=== PATIENT | male | born 1965 ===

== ENCOUNTER 2017-03-14 09:32 | Emergency (ER) | payer MEDICAID, OTHER ==
[2017-03-14 09:39] VITALS: O2SAT 100
--- NOTE | 2017-03-14 10:33 | C.PDOC ---
History Of Present Illness 51 Y/O MALE PRESENTS TO ED WITH C/O BLOOD IN SPERM AFTER HAVING SEX. PT STATES HAVING UNPROTECTED SEX WITH HIS , NOTICED BLOOD IN SPERM. OTHERWISE, ASYMPTOMATIC. DENIES PAIN. PATIENT DENIES ANY SIGNIFICANT PAST MEDICAL HISTORY, INCLUDING HYPERTENSION. NOTES HE TAKES NO REGULAR MEDICATIONS. DENIES PAIN, DYSURIA, ABDOMINAL PAIN, OR OTHER ASSOCIATED SX. EXAM ON ARRIVAL, PT FOUND TO BE HYPERTENSIVE, 229/115 REM NEG Time Seen by Provider: 03/14/17 09:55 Chief Complaint (Nursing): Male Genitourinary History Per: Patient History/Exam Limitations: no limitations Onset/Duration Of Symptoms: Days Current Symptoms Are (Timing): Still Present Pain Scale Rating Of: 0 Associated Symptoms: denies: Fever, Chills, Urinary Symptoms Recent travel outside of the [place]: No Past Medical History Reviewed: Historical Data, Nursing Documentation, Vital Signs Vital Signs: Last Vital Signs Temp 97.8 F 03/14/17 11:05 Pulse 73 03/14/17 12:37 Resp 16 03/14/17 12:37 BP 174/106 H 03/14/17 12:37 Pulse Ox 100 03/14/17 12:20 - Medical History PMH: No Chronic Diseases Family History: States: Unknown Family Hx - Social History Hx Alcohol Use: Yes Hx Substance Use: No - Immunization History Hx Tetanus Toxoid Vaccination: No Hx Influenza Vaccination: No Hx Pneumococcal Vaccination: No Review Of Systems Except As Marked, All Systems Reviewed And Found Negative. Constitutional: Negative for: Fever, Chills Cardiovascular: Negative for: Chest Pain Respiratory: Negative for: Cough, Shortness of Breath Genitourinary: Positive for: Other (HEMATOSPERMIA). Negative for: Dysuria, Hematuria, Scrotal Pain, Rash, Penile Pain Skin: Negative for: Rash Physical Exam - Physical Exam Appears: Non-toxic, No Acute Distress Skin: Normal Color, Warm, Dry Head: Atraumatic, Normacephalic Oral Mucosa: Moist Chest: Symmetrical Cardiovascular: Rhythm Regular Respiratory: Normal Breath Sounds, No Rales, No Rhonchi, No Wheezing Gastrointestinal/Abdominal: No Soft, No Tenderness, No Guarding, No Rebound Back: Normal Inspection Extremity: Normal ROM, Capillary Refill (< 2 SEC.) Neurological/Psych: Oriented x3, Normal Speech, Normal Cognition ED Course And Treatment O2 Sat by Pulse Oximetry: 100 (RA) Pulse Ox Interpretation: Normal Progress - Re-Evaluation Re-evaluation Note: 03/14/17 12:19 EXAM UNCHANGED. PERSISTENT HYPERTENSION, RE-EVALUATE AFTER CLONIDINE Disposition Counseled Patient/Family Regarding: Studies Performed, Diagnosis, Need For Followup, Rx Given - Disposition Referrals: [facility] [Outside] [facility] [Outside] Disposition: HOME/ ROUTINE Disposition Time: 12:45 Condition: IMPROVED Additional Instructions: Hematospermia is the presence of blood in the semen. The semen is composed of secretions from the testes, epididymis, urethral glands, prostate gland, and seminal vesicles. The clear secretions from the urethral glands account for a tiny amount of the semen, the milky white prostate gland secretions account for a small amount of the semen, and the viscous secretions from the seminal vesicles account for the majority of the semen. Hematospermia is not uncommonly encountered in men and usually results from prostate or seminal vesicle inflammation. It is almost always benign and selflimited, resolving in several weeks. IT IS RARELY INDICATIVE OF ANY SERIOUS UNDERLYING DISORDER, FRIGHTENING IT IS TO SEE THE PRESENCE OF BLOOD IN THE EJACULATE! In a very small minority of individuals, hematospermia may become recurrent or chronic, causing great concern and anxiety. Hematospermia may cause blood in the initial, middle, or terminal portion of the ejaculate. Typically, blood arising from the prostate occurs in the initial portion, whereas blood arising from the seminal vesicles occurs later. The color of the semen can vary from bright red, indicative of recent or active bleeding, to a rust or brown color, indicative of old bleeding. Evaluation for hematospermia involves a digital rectal examination of the prostate to check the size and consistency, a urinalysis to check for urinary infection and blood in the urine, and a PSA (prostate specific antigen) blood test. Hematospermia is managed with oral antibiotics. Only if the bloody ejaculations fail to respond is further workup required. This may involve prostate sonography with possible prostate biopsy and cystoscopy. Prostate sonography, done by the trans-rectal route, will commonly show dilated seminal vesicles, ejaculatory duct cysts, and ejaculatory duct or seminal vesicle stones. Cystoscopy, a visual inspection of the lower urinary tract with a small-caliber, flexible instrument Prescriptions: amLODIPine [Norvasc] 10 mg PO DAILY #30 tab Instructions: Hypertension (ED) Forms: [employer] (Martiniquais) - Clinical Impression Clinical Impression: Hypertension, uncontrolled, Hematospermia - Scribe Statement The provider has reviewed the documentation as recorded by the Scribe SM All medical record entries made by the Scribe were at my direction and personally dictated by me. I have reviewed the chart and agree that the record accurately reflects my personal performance of the history, physical exam, medical decision making, and the department course for this patient. I have also personally directed, reviewed, and agree with the discharge instructions and disposition.
[2017-03-14 10:41] LABS: RBC URINE 7 /hpf (0-3); URINE BILIRUBIN NEGATIVE (NEGATIVE); URINE BLOOD 1+ (NEGATIVE); URINE COLOR Yellow (YELLOW); URINE GLUCOSE (UA) NORMAL (Normal); URINE KETONE NEGATIVE (NEGATIVE); URINE LEUKOCYTE ESTERASE NEG Leu/uL (Negative); URINE PROTEIN 1+ mg/dL (NEGATIVE); URINE UROBILINOGEN NORMAL mg/dL (0.2-1.0); WBC URINE 1 /hpf (0-5)
[2017-03-14 11:17] VITALS: RESP 16; TEMP 97.8
[2017-03-14 12:38] VITALS: BP 174/106; PULSE 73
== END 2017-03-14 13:18 | disposition home or self-care (01) ==
LOC: C.ER 09:32
DX: I10 Essential (primary) hypertension (principal); R36.1 Hematospermia

== ENCOUNTER 2017-03-29 14:52 | Observation (INO) | payer MEDICAID ==
[2017-03-29 14:52] VITALS: BMI 38.7
--- NOTE | 2017-03-29 15:29 | C.PDOC ---
History Of Present Illness 51 y/o male who was recently diagnosed with HTN and given antihypertensive 9 days ago, is sent to the ER for HTN and EKG changes today. Patient had a check up at the clinic today and was found to be hypertensive with ekg showing diffuse t wave inversions. Patient takes norvasc at home and was given lisinopril 10mg po before being transferred from clinic to ED. Denies chest pain, palpitations, SOB, abdominal pain, or visual changes. Time Seen by Provider: 03/29/17 15:22 Chief Complaint (Nursing): High Blood Pressure History Per: Patient History/Exam Limitations: no limitations Onset/Duration Of Symptoms: Hrs Current Symptoms Are (Timing): Still Present Severity: Mild Recent travel outside of the [place]: No Additional History Per: Patient Past Medical History Reviewed: Historical Data, Nursing Documentation, Vital Signs Vital Signs: Last Vital Signs Temp 97.8 F 03/29/17 15:04 Pulse 86 03/29/17 16:56 Resp 18 03/29/17 16:56 BP 159/93 H 03/29/17 16:56 Pulse Ox 100 03/29/17 18:09 - Medical History PMH: HTN Family History: States: Unknown Family Hx - Social History Hx Alcohol Use: Yes Hx Substance Use: No - Immunization History Hx Tetanus Toxoid Vaccination: No Hx Influenza Vaccination: No Hx Pneumococcal Vaccination: No Review Of Systems Except As Marked, All Systems Reviewed And Found Negative. Constitutional: Positive for: Other (HTN ). Negative for: Sweats Eyes: Negative for: Vision Change Cardiovascular: Negative for: Chest Pain, Palpitations, Orthopnea, Edema Respiratory: Negative for: Cough, Shortness of Breath, SOB with Excertion Gastrointestinal: Negative for: Nausea, Vomiting, Abdominal Pain, Diarrhea, Constipation Genitourinary: Negative for: Frequency, Incontinence Skin: Negative for: Rash Neurological: Negative for: Weakness, Altered Mental Status, Dizziness Psych: Negative for: Anxiety Physical Exam - Physical Exam Appears: Well, Non-toxic, No Acute Distress Skin: Warm, Dry Head: Atraumatic, Normacephalic Eye(s): bilateral: Normal Inspection, PERRL, EOMI Oral Mucosa: Moist Neck: Supple Chest: Symmetrical Cardiovascular: Rhythm Regular, No Murmur Respiratory: Normal Breath Sounds, No Rales, No Rhonchi, No Wheezing Gastrointestinal/Abdominal: Soft, No Tenderness Back: No CVA Tenderness Extremity: Normal ROM (x4), No Pedal Edema, Capillary Refill (<2secs), No Swelling Neurological/Psych: Oriented x3 Gait: Steady ED Course And Treatment - Laboratory Results Result Diagrams: 03/29/17 16:02 O2 Sat by Pulse Oximetry: 100 (RA) Pulse Ox Interpretation: Normal Medical Decision Making Medical Decision Making: Plans: * EKG * Blood labs * CXR * Aspirin EKG at 15:06 shows NSR at 75bpm with T wave inversions in II, III, AVF, V5-v6, with no prior for comparison (unchanged from EKG at clinic). Repeat BP:181/ 103. Cxray negative. Trop x 1 negative. Repeat EKG at 17:26 when BP was 159/93 shows persistent t wave inversions. Repeat EKG at 18:10 shows persistent t wave inversions. Spoke to Dr. Peralta and will transfer to tele observation. Disposition - Disposition Disposition: HOSPITALIZED Disposition Time: 17:30 Condition: FAIR - Clinical Impression Clinical Impression: Hypertension, T wave inversion in EKG - Scribe Statement The provider has reviewed the documentation as recorded by the Scribe Guy [email or web address] All medical record entries made by the Scribe were at my direction and personally dictated by me. I have reviewed the chart and agree that the record accurately reflects my personal performance of the history, physical exam, medical decision making, and the department course for this patient. I have also personally directed, reviewed, and agree with the discharge instructions and disposition.
--- NOTE | 2017-03-29 16:09 | RAD ---
HISTORY: hypertension COMPARISON: No prior. TECHNIQUE: Chest PA and lateral FINDINGS: LUNGS: No active pulmonary disease. PLEURA: No significant pleural effusion identified. No pneumothorax apparent. CARDIOVASCULAR: Normal. OSSEOUS STRUCTURES: No significant abnormalities. VISUALIZED UPPER ABDOMEN: Normal. OTHER FINDINGS: None. IMPRESSION: No active disease.
[2017-03-29 16:13] LABS: CHLORIDE 97 mmol/L (98-107); POTASSIUM 3.7 mmol/L (3.6-5.2); SODIUM 137 mmol/L (132-148)
[2017-03-29 16:15] LABS: GFR AFRICAN-AMERICAN > 60
[2017-03-29 16:16] LABS: ALB/GLOB RATIO 1.6 (1.0-2.1); ALKALINE PHOSPHATASE 58 U/L (38-126); ALT/SGPT 36 U/L (21-72); AST/SGOT 22 U/L (17-59); BILIRUBIN,TOTAL 0.9 mg/dL (0.2-1.3); BLOOD UREA NITROGEN 22 mg/dL (9-20); CALCIUM 8.7 mg/dl (8.6-10.4); CARBON DIOXIDE 28 mmol/L (22-30); GLUCOSE,RANDOM 93 mg/dL (75-110); TOTAL PROTEIN 7.9 g/dL (6.3-8.3)
--- NOTE | 2017-03-29 19:51 | CP.PCM.HP ---
<John Romano - Last Filed: 03/29/17 20:23> Meds Allergies/Adverse Reactions: Allergies Allergy/AdvReac Type Severity Reaction Status Date / Time No Known Allergies Allergy Verified 03/14/17 09:39 Results - Vital Signs Recent Vital Signs: Last Vital Signs Temp 98.7 F 03/29/17 20:19 Pulse 83 03/29/17 20:19 Resp 20 03/29/17 20:19 BP 172/99 H 03/29/17 20:19 Pulse Ox 100 03/29/17 20:19 - Labs Result Diagrams: 03/29/17 16:02 Labs: Laboratory Results - last 24 hr 03/29/17 16:02 Sodium 137 Potassium 3.7 Chloride 97 L Carbon Dioxide 28 Anion Gap 16 BUN 22 H Creatinine 0.9 Est GFR ( Amer) > 60 Est GFR (Non-Af Amer) > 60 Random Glucose 93 Calcium 8.7 Total Bilirubin 0.9 AST 22 ALT 36 Alkaline Phosphatase 58 Total Creatine Kinase 79 CK-MB (Mass) 0.81 Troponin I < 0.0120 Total Protein 7.9 Albumin 4.9 Globulin 3.0 Albumin/Globulin Ratio 1.6 Attending/Attestation - Attestation I have personally seen and examined this patient.: Yes I have fully participated in the care of the patient.: Yes I have reviewed all pertinent clinical information: Yes Notes (Text): 03/29/17 20:23 Long standing htn, with EKG changes of LVH strain patten, slight systolic murmur in the right sternal border at 2nd rib, not radiating other goss negative exam and has no exertional symptoms. Plan Continue Norvasc 5mg, added lisinopril 20mg Echo in am Upper and lower ext bp See orders for detail. <Milagros Lamas - Last Filed: 03/29/17 21:13> History of Present Illness - History of Present Illness History of Present Illness: CC: " I was sent from the clinic downstairs for high blood pressure" HPI: 51 year old male with past medical history of HTN presents to the ED from the clinic for hypertensive urgency. Patient states he went to the clinic to establish himself as a patient and they did an EKG that showed some changes and with his blood pressure being elevated they wanted him to go to the ED to be evaluated. Patient states he was recently diagnosed in the ED for hypertension and started taking medication. Patient also states 8 years ago he was evaluated by a doctor in the [place] and the doctor told him he had high blood pressure but he did not believe him and never started any medication. He states he has no trouble walking many blocks and does not feel short of breath. He states he sleeps with one pillow. Patient denies chest pain , shortness of breath, dizziness, headache, light headedness, syncope, change in vision or blurry vision. PMD: Dr. Levi Past Medical History: HTN Past Surgical History: Denies Medications: Norvasc 5mg daily Allergies: NKDA Family History: Dad living at 71 years of age; Mom: at age 59 due to breast cancer; Maternal grandfather: passed at 81 years of age due to heart disease Social History: Currently unemployed; denies smoking, denies alcohol; denies illicit drug use; Lives with Present on Admission - Present on Admission Any Indicators Present on Admission: No Review of Systems - Constitutional Constitutional: absent: Headache - EENT Eyes: absent: Blurred Vision, Change in Vision - Cardiovascular Cardiovascular: absent: Chest Pain, Dyspnea, Dyspnea on Exertion, Palpitations, Syncope - Respiratory Respiratory: absent: Dyspnea - Gastrointestinal Gastrointestinal: absent: Constipation, Diarrhea, Hematemesis, Nausea, Vomiting - Genitourinary Genitourinary: absent: Dysuria - Musculoskeletal Musculoskeletal: absent: Numbness, Tingling - Neurological Neurological: absent: Dizziness, Numbness, Headaches, Paresthesias, Syncope, Tingling, Weakness - Psychiatric Psychiatric: absent: Anxiety Past Patient History - Past Social History Smoking Status: Never Smoked - CARDIAC Hx Hypertension: Yes - PSYCHIATRIC Hx Substance Use: No - SURGICAL HISTORY Hx Surgeries: No - ANESTHESIA Hx Anesthesia: No Physical Exam - Constitutional Appears: Well, No Acute Distress - Head Exam Head Exam: ATRAUMATIC, NORMAL INSPECTION, NORMOCEPHALIC - Eye Exam Eye Exam: EOMI, Normal appearance, PERRL Pupil Exam: NORMAL ACCOMODATION - ENT Exam ENT Exam: Mucous Membranes Moist - Respiratory Exam Respiratory Exam: Clear to Auscultation Bilateral, NORMAL BREATHING PATTERN. absent: Rales, Rhonchi, Wheezes - Cardiovascular Exam Cardiovascular Exam: REGULAR RHYTHM, RRR, +S1, +S2. absent: JVD - GI/Abdominal Exam GI & Abdominal Exam: Normal Bowel Sounds, Soft. absent: Tenderness - Extremities Exam Extremities exam: Positive for: normal inspection. Negative for: pedal edema, tenderness - Neurological Exam Neurological exam: Alert, CN II-XII Intact, Oriented x3 - Expanded Neurological Exam Expanded Patient oriented to: person, place, time Sensory exam: Lower Extremity Light Touch: Normal, Upper Extremity Light Touch: Normal Neuro motor strength exam: Left Upper Extremity: 5, Right Upper Extremity: 5, Left Lower Extremity: 5, Right Lower Extremity: 5 Coma Scale Eye Opening: SPONTANEOUS Coma Scale Motor Response: OBEYS COMMANDS - Psychiatric Exam Psychiatric exam: Normal Affect, Normal Mood - Skin Skin Exam: Normal Color, Warm Results - Vital Signs Recent Vital Signs: Last Vital Signs Temp 98.5 F 03/29/17 19:33 Pulse 80 03/29/17 19:15 Resp 16 03/29/17 19:15 BP 161/87 H 03/29/17 19:15 Pulse Ox 98 03/29/17 19:15 - Labs Result Diagrams: 03/29/17 16:02 Labs: Laboratory Results - last 24 hr 03/29/17 16:02 Sodium 137 Potassium 3.7 Chloride 97 L Carbon Dioxide 28 Anion Gap 16 BUN 22 H Creatinine 0.9 Est GFR ( Amer) > 60 Est GFR (Non-Af Amer) > 60 Random Glucose 93 Calcium 8.7 Total Bilirubin 0.9 AST 22 ALT 36 Alkaline Phosphatase 58 Total Creatine Kinase 79 CK-MB (Mass) 0.81 Troponin I < 0.0120 Total Protein 7.9 Albumin 4.9 Globulin 3.0 Albumin/Globulin Ratio 1.6 Assessment & Plan - Assessment and Plan (Free Text) Assessment: 1.) Hypertensive Urgency secondary to uncontrolled hypertension - EKG: showed Normal sinus rhythm with left ventricular hypertrophy - Troponin: Negative - Lipid Panel (03/29): Cholesterol 150; LDL 104; HDL 51; Triglycerides 83 - f/u ECHO - Norvasc 5mg daily - Lisinopril: 20mg 2.) History of HTN - Norvasc 5mg daily - Lisinopril: 20mg 3.) Prophylaxis - Heparin SC - Pepcid 20mg daily - SCDs Case discussed with Dr. Juan Antonio Lamas PGY-1
[2017-03-29 20:50] VITALS: O2SAT 98
[2017-03-30 08:21] VITALS: PULSE 64
[2017-03-30 08:55] VITALS: BP 143/84; RESP 18; TEMP 97.8
--- NOTE | 2017-03-30 10:53 | CP.PCM.DIS ---
<Carmine Uribe - Last Filed: 03/30/17 10:47> Provider - Provider Date of Admission: 03/29/17 18:12 Attending physician: Jayy Peralta MD Primary care physician: Dr Levi Consults: None Time Spent in preparation of Discharge (in minutes): 35 Diagnosis - Discharge Diagnosis (1) T wave inversion in EKG Status: Chronic Priority: Medium (2) Hypertension, uncontrolled Status: Chronic Priority: High Hospital Course - Lab Results Lab Results: Most Recent Lab Values Sodium 137 mmol/L (132-148) 03/29/17 16:02 Potassium 3.7 mmol/L (3.6-5.2) 03/29/17 16:02 Chloride 97 mmol/L (98-107) L 03/29/17 16:02 Carbon Dioxide 28 mmol/L (22-30) 03/29/17 16:02 Anion Gap 16 (10-20) 03/29/17 16:02 BUN 22 mg/dL (9-20) H 03/29/17 16:02 Creatinine 0.9 mg/dL (0.8-1.5) 03/29/17 16:02 Est GFR ( Amer) > 60 03/29/17 16:02 Est GFR (Non-Af Amer) > 60 03/29/17 16:02 Random Glucose 93 mg/dL (75-110) 03/29/17 16:02 Calcium 8.7 mg/dl (8.6-10.4) 03/29/17 16:02 Total Bilirubin 0.9 mg/dL (0.2-1.3) 03/29/17 16:02 AST 22 U/L (17-59) 03/29/17 16:02 ALT 36 U/L (21-72) 03/29/17 16:02 Alkaline Phosphatase 58 U/L (38-126) 03/29/17 16:02 Total Creatine Kinase 79 U/L (55-170) 03/29/17 16:02 CK-MB (Mass) 0.81 ng/mL (0.0-3.38) 03/29/17 16:02 Troponin I < 0.0120 ng/mL (0.00-0.120) 03/29/17 16:02 Total Protein 7.9 g/dL (6.3-8.3) 03/29/17 16:02 Albumin 4.9 g/dL (3.5-5.0) 03/29/17 16:02 Globulin 3.0 gm/dL (2.2-3.9) 03/29/17 16:02 Albumin/Globulin Ratio 1.6 (1.0-2.1) 03/29/17 16:02 - Hospital Course Hospital Course: CC: " I was sent from the clinic downstairs for high blood pressure" HPI: 51 year old male with past medical history of HTN presents to the ED from the clinic for hypertensive urgency. Patient states he went to the clinic to establish himself as a patient and they did an EKG that showed some changes and with his blood pressure being elevated they wanted him to go to the ED to be evaluated. Patient states he was recently diagnosed in the ED for hypertension and started taking medication. Patient also states 8 years ago he was evaluated by a doctor in the [facility] and the doctor told him he had high blood pressure but he did not believe him and never started any medication. He states he has no trouble walking many blocks and does not feel short of breath. He states he sleeps with one pillow. Patient denies chest pain , shortness of breath, dizziness, headache, light headedness, syncope, change in vision or blurry vision. PMD: Dr. Levi Past Medical History: HTN Past Surgical History: Denies Medications: Norvasc 5mg daily Allergies: NKDA Family History: Dad living at 71 years of age; Mom: at age 59 due to breast cancer; Maternal grandfather: passed at 81 years of age due to heart disease Social History: Currently unemployed; denies smoking, denies alcohol; denies illicit drug use; Lives with HOSPITAL COURSE: This patient was sent directly from the clinic for EKG changes showing T-wave inversions and LVH in the inferior leads, as well as uncontrolled blood pressure of 211/122. Clinic MD and resident thought an ED evaluation was warranted. To control his blood pressure he was given norvasc 10mg po qd and lisinopril 20mg po qd. A troponin was drawn which was negative. EKGs were reviewed and he was placed on telementry which again showed T-wave inversions and LVH in the inferior leads. However the patient was asymptomatic throughout his stay. A lipid panel was drawn which as normal. An ECHO was done however the official report is not back yet. The patient will follow-up in the [facility] clinic to review the ECHO results. By discharge his BP was within normal levels. Discharge Exam - Head Exam Head Exam: ATRAUMATIC, NORMAL INSPECTION, NORMOCEPHALIC - Additional Findings Additional findings: - Constitutional Appears: Well, No Acute Distress - Head Exam Head Exam: ATRAUMATIC, NORMAL INSPECTION, NORMOCEPHALIC - Eye Exam Eye Exam: EOMI, Normal appearance, PERRL Pupil Exam: NORMAL ACCOMODATION - ENT Exam ENT Exam: Mucous Membranes Moist - Respiratory Exam Respiratory Exam: Clear to Auscultation Bilateral, NORMAL BREATHING PATTERN. absent: Rales, Rhonchi, Wheezes - Cardiovascular Exam Cardiovascular Exam: REGULAR RHYTHM, RRR, +S1, +S2. absent: JVD - GI/Abdominal Exam GI & Abdominal Exam: Normal Bowel Sounds, Soft. absent: Tenderness - Extremities Exam Extremities exam: Positive for: normal inspection. Negative for: pedal edema, tenderness - Neurological Exam Neurological exam: Alert, CN II-XII Intact, Oriented x3 - Expanded Neurological Exam Expanded Patient oriented to: person, place, time Sensory exam: Lower Extremity Light Touch: Normal, Upper Extremity Light Touch: Normal Neuro motor strength exam: Left Upper Extremity: 5, Right Upper Extremity: 5, Left Lower Extremity: 5, Right Lower Extremity: 5 Coma Scale Eye Opening: SPONTANEOUS Coma Scale Motor Response: OBEYS COMMANDS - Psychiatric Exam Psychiatric exam: Normal Affect, Normal Mood - Skin Skin Exam: Normal Color, Warm Discharge Plan - Discharge Medications Prescriptions: amLODIPine [Norvasc] 10 mg PO DAILY #30 tab Lisinopril [Zestril] 20 mg PO DAILY 30 Days #30 tab - Follow Up Plan Condition: FAIR Disposition: HOME/ ROUTINE Instructions: Lisinopril (By mouth), Amlodipine (By mouth), Heart Healthy Diet (DC), How to Take a Blood Pressure (DC), Hypertensive Crisis (DC) Additional Instructions: Patient is medically stable for discharge. Patient is being given a script for the following NEW mediations: Lisinopril 20mg 1 tablet by mouth once a day Patient is to continue his home medications of: Amlodipine 10mg 1 tablet by mouth once a day (he is being given a script for this as well) Patient is to make an appointment with [facility] ([phone] ) and follow-up in 1 week regarding the results of his ECHO. If symptoms arise from his high blood pressure (such as headache, dizziness, weakness) patient should return to the ER. Referrals: [facility] at [facility] [Outside] Jayy Peralta MD [Staff Provider] - <Chandler Munguia - Last Filed: 03/30/17 18:10> Provider - Provider Date of Admission: 03/29/17 18:12 Attending physician: Jayy Peralta MD Hospital Course - Lab Results Lab Results: Most Recent Lab Values WBC 6.2 K/uL (4.8-10.8) 03/30/17 11:14 RBC 5.26 Mil/uL (4.40-5.90) 03/30/17 11:14 Hgb 16.5 g/dL (12.0-18.0) 03/30/17 11:14 Hct 49.4 % (35.0-51.0) 03/30/17 11:14 MCV 93.9 fL (80.0-94.0) 03/30/17 11:14 MCH 31.3 pg (27.0-31.0) H 03/30/17 11:14 MCHC 33.3 g/dL (33.0-37.0) 03/30/17 11:14 RDW 14.0 % (11.5-14.5) 03/30/17 11:14 Plt Count 332 K/uL (130-400) 03/30/17 11:14 MPV 8.1 fL (7.2-11.7) 03/30/17 11:14 Neut % (Auto) 54.6 % (50.0-75.0) 03/30/17 11:14 Lymph % (Auto) 32.4 % (20.0-40.0) 03/30/17 11:14 [place] % (Auto) 8.9 % (0.0-10.0) 03/30/17 11:14 Eos % (Auto) 3.1 % (0.0-4.0) 03/30/17 11:14 Baso % (Auto) 1.0 % (0.0-2.0) 03/30/17 11:14 Neut # 3.4 K/uL (1.8-7.0) 03/30/17 11:14 Lymph # 2.0 K/uL (1.0-4.3) 03/30/17 11:14 [place] # 0.5 K/uL (0.0-0.8) 03/30/17 11:14 Eos # 0.2 K/uL (0.0-0.7) 03/30/17 11:14 Baso # 0.1 K/uL (0.0-0.2) 03/30/17 11:14 Sodium 138 mmol/L (132-148) 03/30/17 11:14 Potassium 3.2 mmol/L (3.6-5.2) L 03/30/17 11:14 Chloride 97 mmol/L (98-107) L 03/30/17 11:14 Carbon Dioxide 32 mmol/L (22-30) H 03/30/17 11:14 Anion Gap 12 (10-20) 03/30/17 11:14 BUN 20 mg/dL (9-20) 03/30/17 11:14 Creatinine 1.1 mg/dL (0.8-1.5) 03/30/17 11:14 Est GFR ( Amer) > 60 03/30/17 11:14 Est GFR (Non-Af Amer) > 60 03/30/17 11:14 Random Glucose 72 mg/dL (75-110) L 03/30/17 11:14 Calcium 8.8 mg/dl (8.6-10.4) 03/30/17 11:14 Phosphorus 2.6 mg/dL (2.5-4.5) 03/30/17 11:14 Magnesium 2.1 mg/dL (1.6-2.3) 03/30/17 11:14 Total Bilirubin 1.1 mg/dL (0.2-1.3) 03/30/17 11:14 AST 26 U/L (17-59) 03/30/17 11:14 ALT 35 U/L (21-72) 03/30/17 11:14 Alkaline Phosphatase 51 U/L (38-126) 03/30/17 11:14 Total Creatine Kinase 79 U/L (55-170) 03/29/17 16:02 CK-MB (Mass) 0.81 ng/mL (0.0-3.38) 03/29/17 16:02 Troponin I < 0.0120 ng/mL (0.00-0.120) 03/29/17 16:02 Total Protein 7.0 g/dL (6.3-8.3) 03/30/17 11:14 Albumin 4.4 g/dL (3.5-5.0) 03/30/17 11:14 Globulin 2.6 gm/dL (2.2-3.9) 03/30/17 11:14 Albumin/Globulin Ratio 1.7 (1.0-2.1) 03/30/17 11:14 Attending/Attestation - Attestation I have personally seen and examined this patient.: Yes I have fully participated in the care of the patient.: Yes I have reviewed all pertinent clinical information, including history, physical exam and plan: Yes Notes (Text): 03/30/17 18:10 Medical attending: Patient was seen and examined by me, agree with the above note by medical care manager. The patient reported that he is feeling quite well. As documented previously when he first came in to the clinic downstairs he had very elevated blood pressures and this was concerning since they felt that he had an abnormal EKG as well and so he was sent up to the emergency room. There is no point during his time here in the clinic, in the ER, or when I saw him on the medical floors where he reported chest pain or having headaches. I explained to the patient that it's very important that he controls his blood pressure since it does put him at risk for future events And so the patient's can be discharged home with prescription for his regular blood pressure medication as well as an additional medication Thank you very much, Chandler Munguia
[2017-03-30 11:33] LABS: BASO # 0.1 K/uL (0.0-0.2); EOS # 0.2 K/uL (0.0-0.7); EOS % 3.1 % (0.0-4.0); HEMATOCRIT 49.4 % (35.0-51.0); LYMPH % 32.4 % (20.0-40.0); MEAN CELL VOLUME 93.9 fL (80.0-94.0); MEAN CORPUSCULAR HEMOGLOBIN 31.3 pg (27.0-31.0); MEAN CORPUSCULAR HGB CONC 33.3 g/dL (33.0-37.0); MEAN PLATELET VOLUME 8.1 fL (7.2-11.7); MONO # 0.5 K/uL (0.0-0.8); MONO % 8.9 % (0.0-10.0); NRBC % 0.1 % (0.0-2.0); WHITE BLOOD COUNT 6.2 K/uL (4.8-10.8)
[2017-03-30 11:51] LABS: CHLORIDE 97 mmol/L (98-107); POTASSIUM 3.2 mmol/L (3.6-5.2); SODIUM 138 mmol/L (132-148)
[2017-03-30 11:53] LABS: ALB/GLOB RATIO 1.7 (1.0-2.1); AST/SGOT 26 U/L (17-59); BILIRUBIN,TOTAL 1.1 mg/dL (0.2-1.3); CARBON DIOXIDE 32 mmol/L (22-30); GFR AFRICAN-AMERICAN > 60
[2017-03-30 11:54] LABS: ALKALINE PHOSPHATASE 51 U/L (38-126); ALT/SGPT 35 U/L (21-72); BLOOD UREA NITROGEN 20 mg/dL (9-20); CALCIUM 8.8 mg/dl (8.6-10.4); GLUCOSE,RANDOM 72 mg/dL (75-110); MAGNESIUM 2.1 mg/dL (1.6-2.3); PHOSPHOROUS 2.6 mg/dL (2.5-4.5)
--- NOTE | 2017-03-30 13:13 | CARD ---
APPROVED REPORT EXAM: Two-dimensional and M-mode echocardiogram with Doppler and color Doppler. Other Information Quality : GoodRhythm : NSR INDICATION CVA/TIA HYPERTENSIVE URGENCY, EKG CHANGES RISK FACTORS Hypertension 2D DIMENSIONS IVSd1.4 (0.7-1.1cm)LVDd4.5 (3.9-5.9cm) PWd1.3 (0.7-1.1cm)LVDs2.6 (2.5-4.0cm) FS (%) 41.9 %LVEF (%)73.0 (>50%) M-Mode DIMENSIONS Left Atrium (MM)4.03 (2.5-4.0cm)Aortic Root3.52 (2.2-3.7cm) Aortic Cusp Exc.2.63 (1.5-2.0cm) Mitral Valve MV E Xshfpvcd43.2cm/sMV A Vebohrqr03.3cm/sE/A ratio1.0 TDI E/Lateral E'0.0E/Medial E'0.0 Tricuspid Valve TR Peak [id number]/sTR Peak [id number] LEFT VENTRICLE The left ventricle is normal size. There is borderline to mild concentric left ventricular hypertrophy. The left ventricular systolic function is normal. The left ventricular ejection fraction is within the normal range. There is normal LV segmental wall motion. The left ventricular diastolic function is normal. RIGHT VENTRICLE The right ventricle is normal size. The right ventricular systolic function is normal. ATRIA The left atrium size is normal. The right atrium size is normal. AORTIC VALVE The aortic valve is normal in structure. No aortic regurgitation is present. MITRAL VALVE The mitral valve is normal in structure. There is no mitral valve regurgitation noted. TRICUSPID VALVE The tricuspid valve is normal in structure. There is trace tricuspid regurgitation. PULMONIC VALVE The pulmonary valve is normal in structure. There is trace pulmonic valvular regurgitation. GREAT VESSELS The aortic root is normal in size. The IVC is normal in size and collapses >50% with inspiration. PERICARDIAL EFFUSION There is no pericardial effusion. <Conclusion> There is borderline to mild concentric left ventricular hypertrophy. The left ventricular systolic function is normal. There is normal LV segmental wall motion. The left ventricular diastolic function is normal. The right ventricular systolic function is normal. No structural valvular abnormality. There is no pericardial effusion.
--- NOTE | 2017-03-31 16:54 | CARD ---
APPROVED REPORT EKG Measurement Heart [id number] <Conclusion> Normal sinus rhythm Possible Left atrial enlargement Left ventricular hypertrophy with repolarization abnormality Abnormal ECG
--- NOTE | 2017-03-31 16:55 | CARD ---
APPROVED REPORT EKG Measurement Heart [id number] [id number] <Conclusion> Normal sinus rhythm Possible Left atrial enlargement Left ventricular hypertrophy with repolarization abnormality. Abnormal ECG
--- NOTE | 2017-03-31 16:55 | CARD ---
APPROVED REPORT EKG Measurement Heart [id number] <Conclusion> Normal sinus rhythm Possible Left atrial enlargement Left ventricular hypertrophy with repolarization abnormality. Abnormal ECG
== END 2017-03-30 13:24 | disposition home or self-care (01) ==
LOC: C.ER 14:52 → UNDOADMOB 18:05 → C.9E 18:05 → C.6T 19:27
PROVIDERS: ADMIT Family Medicine; ATTEND Family Medicine
DX: I16.0 Hypertensive urgency (principal)
CPT/HCPCS: 36415; 71020; 80053; 82550; 82553; 83735; 84100; 84484; 85025; 93306; 99285; G0378; J1644